=== PATIENT | female | born 1955 | race Caucasian/White ===

== ENCOUNTER 2021-04-09 13:01 | Emergency (ER) | payer MEDICARE ==
[2021-04-09] MEDS ORDERED: Boostrix 0.5 ML (Tdap) VIAL ONE (13:28)
[2021-04-09] MEDS ORDERED: Acetaminophen 500 MG TAB ONE (13:28)
== END 2021-04-09 16:46 | disposition home or self-care (01) ==
LOC: NAV ERS 13:01
DX: S01.81XA Laceration without foreign body of other part of head, initial encounter (principal); I10 Essential (primary) hypertension; F17.210 Nicotine dependence, cigarettes, uncomplicated; W22.8XXA Striking against or struck by other objects, initial encounter
CPT/HCPCS: 12011; 70450; 90471; 90715

== ENCOUNTER 2023-05-05 13:54 | Emergency (ER) | payer OTHER, MEDICARE | END 2023-05-05 14:25 | disposition home or self-care (01) | LOC: NAV ERS 13:54 | DX: S61.511A Laceration without foreign body of right wrist, initial encounter (principal); I10 Essential (primary) hypertension; E78.00 Pure hypercholesterolemia, unspecified; F17.210 Nicotine dependence, cigarettes, uncomplicated; W26.8XXA Contact with other sharp object(s), not elsewhere classified, initial encounter; Y93.89 Activity, other specified; Z79.899 Other long term (current) drug therapy | CPT/HCPCS: 12001 ==